=== PATIENT | male | born 1965 | race Caucasian/White ===

== ENCOUNTER 2018-07-27 21:11 | Emergency (ER) | payer OTHER ==
[~2018-07-27] VITALS: Ht 167.6 cm; Wt 85.7 kg
[2018-07-27 21:20] VITALS: Ht 167.6 cm; Wt 85.7 kg
[2018-07-28 00:24] VITALS: BP 124/80
== END 2018-07-28 00:24 | disposition home or self-care (01) ==
LOC: ED 21:11
DX: J40 Bronchitis, not specified as acute or chronic (principal)
CPT/HCPCS: J1100